=== PATIENT | female | born 1995 | race Caucasian/White ===

== ENCOUNTER 2018-03-15 23:54 | Emergency (ER) | payer BC ==
--- NOTE | 2018-03-16 00:14 | ED ---
Lower Extremity - HPI Summary HPI Summary: Patient complains of hearing right knee pain after hearing a pop in his right knee while dancing tonight. Patient states knee looked deformed afterwards. Patient not ambulatory since. States while EMS was moving him to the truck he heard a pop and it felt like knee went back into place. Denies any other pain, injury, symptoms. Has loss of sensation or function distally in right foot. - History of Current Complaint Chief Complaint: EDExtremityLower Stated Complaint: RT KNEE INJURY Time Seen by Provider: 03/16/18 00:03 Hx Obtained From: Patient Mechanism Of Injury: Other Onset of Pain: Immediate Onset/Duration: Minutes Severity Initially: Moderate Severity Currently: Moderate Pain Intensity: 6 Pain Scale Used: 0-10 Numeric Timing: Constant Location: Is Discrete @ Character Of Pain: Throbbing Aggravating Factor(s): Movement Alleviating Factor(s): Rest Able to Bear Weight: No - Allergies/Home Medications Allergies/Adverse Reactions: Allergies Allergy/AdvReac Type Severity Reaction Status Date / Time No Known Allergies Allergy Verified 03/16/18 00:38 PMH/Surg Hx/FS Hx/Imm Hx Endocrine/Hematology History: Denies: Hx Anticoagulant Therapy Cardiovascular History: Denies: Hx Cardiac Arrest History: Denies: Hx Dialysis Neurological History: Denies: Hx CVA Psychiatric History: Denies: Hx Autism Infectious Disease History: No Infectious Disease History: Denies: Traveled Outside the [place] in Last 30 Days - Social History Alcohol Use: Occasionally Substance Use Type: Reports: Marijuana Smoking Status (MU): Light Every Day Tobacco Smoker Review of Systems Constitutional: Negative Eyes: Negative ENT: Negative Cardiovascular: Negative Respiratory: Negative Gastrointestinal: Negative Genitourinary: Negative Positive: Arthralgia Skin: Negative Neurological: Negative Psychological: Normal All Other Systems Reviewed And Are Negative: Yes Physical Exam - Summary Physical Exam Summary: PMS intact on right foot. Triage Information Reviewed: Yes Vital Signs On Initial Exam: Initial Vitals Temp Pulse Resp BP Pulse Ox 98.8 F 91 18 122/81 95 03/15/18 23:56 03/15/18 23:56 03/15/18 23:56 03/15/18 23:56 03/15/18 23:56 Vital Signs Reviewed: Yes Appearance: Positive: Well-Appearing Skin: Positive: Warm Head/Face: Positive: Normal Head/Face Inspection Eyes: Positive: Normal Neck: Positive: Supple Respiratory/Lung Sounds: Positive: Clear to Auscultation Cardiovascular: Positive: Normal Abdomen Description: Positive: Nontender Musculoskeletal: Positive: Normal Neurological: Positive: Normal Psychiatric: Positive: Normal - Sophia Coma Scale Best Eye Response: 4 - Spontaneous Best Motor Response: 6 - Obeys Commands Best Verbal Response: 5 - Oriented Coma Scale Total: 15 Diagnostics - Vital Signs Vital Signs Temp Pulse Resp BP Pulse Ox 03/15/18 23:56 98.8 F 91 18 122/81 95 - Laboratory Lab Statement: Any lab studies that have been ordered have been reviewed, and results considered in the medical decision making process. Lower Extremity Course/Dx - Course Course Of Treatment: Patient complains of hearing right knee pain after hearing a pop in his right knee while dancing tonight. Patient states knee looked deformed afterwards. Patient not ambulatory since. States while EMS was moving him to the truck he heard a pop and it felt like knee went back into place. Denies any other pain, injury, symptoms. Has no loss of sensation or function distally in right foot. Tenderness to palpation of entire rt knee. No ecchymosis, swelling, deformity, erythema, extra warmth noted. PMS intact distally. X-ray negative for acute process. Crutches, ice, ibuprofen. Follow- up with orthopedics if pain symptoms do not improve in a few days. - Diagnoses Provider Diagnoses: Acute knee pain Discharge - Sign-Out/Discharge Documenting (check all that apply): Patient Departure - Discharge Plan Condition: Stable Disposition: HOME Patient Education Materials: Knee Pain (ED) Forms: *Work Release Referrals: No Primary Care Phys,NOPCP [Primary Care Provider] - Brendan London MD [Medical Doctor] - Additional Instructions: Weightbearing as tolerated. Ibuprofen, rest, ice for pain. Follow-up with orthopedics Dr. London if pain does not start to improve in a few days. Return to the ED for any new or worsening symptoms - Billing Disposition and Condition Condition: STABLE Disposition: Home
[2018-03-16] MEDS ORDERED: Ibuprofen TAB* 600 MG PO ONE (00:57)
[2018-03-16 01:25] VITALS: BP 117/80
== END 2018-03-16 01:01 | disposition home or self-care (01) ==
LOC: ED 23:54
DX: M25.561 Pain in right knee (principal); F17.200 Nicotine dependence, unspecified, uncomplicated
CPT/HCPCS: 99281; A9270-GY